=== PATIENT | male | born 1965 | race Caucasian/White ===

== ENCOUNTER 2024-02-10 10:24 | Emergency (ER) | payer BC ==
[2024-02-10 10:53] LABS: BASOPHILS ABSOLUTE AUTO 0.04 K/uL (0.00-0.20); BASOPHILS PERCENT AUTO 0.3 % (0.0-2.0); EOSINOPHILS ABSOLUTE AUTO 0.11 K/uL (0.00-0.50); EOSINOPHILS PERCENT AUTO 0.8 % (0.0-5.0); HEMATOCRIT 48.1 % (39.0-49.0); HEMOGLOBIN 16.2 g/dL (13.1-16.8); IMMATURE GRAN ABSOLUTE AUTO 0.05 10^3/uL (0.00-0.50); IMMATURE GRAN PERCENT AUTO 0.4 % (0.0-5.0); LYMPHOCYTES ABSOLUTE AUTO 2.37 K/uL (0.50-3.50); LYMPHOCYTES PERCENT AUTO 17.6 % (10.0-50.0); MEAN CORPUSCULAR HEMOGLOBIN 29.3 pg (28.2-33.3); MEAN CORPUSCULAR HGB CONC 33.7 g/dL (31.7-36.0); MEAN CORPUSCULAR VOLUME 87.1 fL (84.0-98.0); MONOCYTES ABSOLUTE AUTO 0.97 K/uL (0.00-1.00); MONOCYTES PERCENT AUTO 7.2 % (2.0-14.0); NEUTROPHILS ABSOLUTE AUTO 9.95 K/uL (1.40-7.00); NEUTROPHILS PERCENT AUTO 73.7 % (45.0-80.0); PLATELET COUNT,PLT 245 K/uL (150-350); RED BLOOD CELL COUNT 5.52 M/uL (4.33-5.41); RED CELL DISTRIBUTION WIDTH 12.3 % (11.2-14.1); WHITE BLOOD CELL COUNT,WBC 13.5 K/uL (4.0-10.2)
[2024-02-10 11:13] LABS: LACTIC ACID 1.7 mmol/L (0.4-2.0)
[2024-02-10 11:19] LABS: ALBUMIN 4.4 g/dL (3.4-5.0); BILIRUBIN TOTAL 0.7 mg/dL (0.2-1.0); CALCIUM 9.3 mg/dL (8.5-10.1); CREATININE 1.22 mg/dL (0.51-1.17); EST CRCL DRUG DOSING (CG) 73.68 mL/min; MAGNESIUM 1.9 mg/dL (1.8-2.4); POTASSIUM,K 4.5 mmol/L (3.5-5.1); PROTEIN TOTAL,TP 7.9 g/dL (6.4-8.2)
[2024-02-10 11:20] LABS: PROTHROMBIN TIME 9.5 SEC (9.0-11.1)
[2024-02-10 11:21] LABS: ANION GAP 18.5 meq/L (7-15)
[2024-02-10] MEDS: Aspirin 81 MG Tab.Chew PO ONE ×2 (11:23→12:33)
[2024-02-10] MEDS: Pantoprazole 40 MG Vial IVPUSH ONE (11:24)
[2024-02-10] MEDS: Diltiazem IR 60 MG Tab PO ONE (11:24)
[2024-02-10] MEDS: Sodium Chloride 0.9% 10 ML Syringe FLUSH PRN (11:24)
[2024-02-10] MEDS: Nitroglycerin 0.4 MG Tab.SL SL ONE (12:06)
== END 2024-02-10 12:45 ==
LOC: LL.ED 10:24
DX: R07.9 Chest pain, unspecified (principal); R79.89 Other specified abnormal findings of blood chemistry; I10 Essential (primary) hypertension; E78.00 Pure hypercholesterolemia, unspecified; F17.210 Nicotine dependence, cigarettes, uncomplicated; Z79.899 Other long term (current) drug therapy
CPT/HCPCS: 36415; 71045; 80053; 83605; 83735; 83880; 84484; 85025; 85379; 85610; 93005; 96374; 99285-25; A9270-GY; J2470; J3490